=== PATIENT | female | born 1980 | race Caucasian/White ===

== ENCOUNTER 2017-06-30 08:18 | Emergency (ER) | payer OTHER ==
[2017-06-30 08:34] VITALS: BP 136/87
--- NOTE | 2017-06-30 08:58 | UC ---
Respiratory Complaint HPI - HPI Summary HPI Summary: Per command and control specialist "Cough for 3 weeks, back pain when coughing, sore throat due to irritation" Has had similar episdoe 02/10 and was treated w/ steroid inhaler and albuterol shannon theodore with good results. she hates coming to the Dr but really wanted her to come in. she felt better thruogh a couple tiomes of the illness but sx restarted 1 wk ago. denies asthma hx. no fevers or sinus pain. no congestion -BP is well controlled. - History of Current Complaint Chief Complaint: UCRespiratory Stated Complaint: COUGH/ST/EYE COMPLAINT Time Seen by Provider: 06/30/17 08:30 Hx Last Menstrual Period: 06/19 Pain Intensity: 0 - Allergies/Home Medications Allergies/Adverse Reactions: Allergies Allergy/AdvReac Type Severity Reaction Status Date / Time amoxicillin Allergy Rash Verified 06/30/17 08:38 erythromycin base Allergy GI Upset Verified 06/30/17 08:38 Home Medications: Home Medications Lisinopril TAB* [Prinivil TAB 5 MG*] 1 tab PO DAILY 06/30/17 [History Confirmed 06/30/17] PMH/Surg Hx/FS Hx/Imm Hx Previously Healthy: Yes Cardiovascular History: Hypertension - Surgical History Surgical History: None - Family History Known Family History: Positive: Hypertension - Social History Alcohol Use: None Substance Use Type: None Smoking Status (MU): Never Smoked Tobacco Review of Systems Constitutional: Negative Skin: Negative Eyes: Negative ENT: Sore Throat Respiratory: Cough Cardiovascular: Negative Gastrointestinal: Negative Genitourinary: Negative Motor: Negative Neurovascular: Negative Musculoskeletal: Negative Neurological: Negative Psychological: Negative Is Patient Immunocompromised?: No All Other Systems Reviewed And Are Negative: Yes Physical Exam Triage Information Reviewed: Yes Appearance: Well-Appearing, No Pain Distress, Well-Nourished - moderate coufgh while in waiting room, could be heard thorughout building. very pleasant Vital Signs: Initial Vital Signs Temp 98.5 F 06/30/17 08:29 Pulse 88 06/30/17 08:29 Resp 18 06/30/17 08:29 BP 136/87 06/30/17 08:29 Pulse Ox 100 06/30/17 08:29 Vital Signs Reviewed: Yes Eye Exam: Normal ENT Exam: Normal ENT: Positive: Pharynx normal, TMs normal, Uvula midline. Negative: Sinus tenderness Dental Exam: Normal Neck exam: Normal Neck: Positive: Supple, Nontender, No Lymphadenopathy Respiratory: Positive: Lungs clear, No respiratory distress, No accessory muscle use, Decreased breath sounds - mildly b/l. Negative: Crackles, Rhonchi, Stridor, Wheezing Cardiovascular Exam: Normal Cardiovascular: Positive: RRR Abdomen Description: Positive: Nontender, Soft Musculoskeletal Exam: Normal Neurological Exam: Normal Psychological Exam: Normal Skin Exam: Normal UC Diagnostic Evaluation - Laboratory O2 Sat by Pulse Oximetry: 100 Respiratory Course/Dx - Course Course Of Treatment: she is very agreeable w/ plan of symbicort, alb and tessaoln perles. - Differential Dx/Diagnosis Differential Diagnosis/HQI/PQRI: Asthma, Bronchitis, Lower Resp Infection, Sinusitis Provider Diagnoses: Bronchitis Discharge - Sign-Out/Discharge Documenting (check all that apply): Post-Discharge Follow Up - Discharge Plan Condition: Stable Disposition: HOME Prescriptions: Albuterol HFA INHALER* [Ventolin HFA Inhaler*] 2 puff INH Q4H PRN #1 mdi PRN Reason: Cough Benzonatate CAP* [Tessalon 100 MG CAP*] 100 mg PO TID PRN #30 cap PRN Reason: Cough Budesonide/Formote 80/4.5(NF) [Symbicort 80/4.5 (NF)] 1 puff INH BID 15 Days #1 mdi Patient Education Materials: Acute Bronchitis (ED) Referrals: Ricardo Aldridge [Primary Care Provider] - 5 Days Additional Instructions: -Drink plenty of fluids. Humidifier may be helpful. -Make sure to rinse your mouth out after each use of the budesonide to avoid thrush -use the labuterol inhaler every 4 hrs as needed. -No evidence for any bacterial infection at this time, but I would consider getting a chest xray if symptoms worsen or persist. - Billing Disposition and Condition Condition: STABLE Disposition: HOME
== END 2017-06-30 09:18 | disposition home or self-care (01) ==
LOC: UCCORT 08:18
DX: J40 Bronchitis, not specified as acute or chronic (principal); Z88.1 Allergy status to other antibiotic agents; Z88.0 Allergy status to penicillin; I10 Essential (primary) hypertension
CPT/HCPCS: 99212; G0463